=== PATIENT | female | born 1960 ===

== ENCOUNTER 2020-06-11 07:56 | Inpatient (IN) | payer OTHER ==
[~2020-06-11] VITALS: Ht 152.4 cm; Wt 90.7 kg
[2020-06-13] MEDS ORDERED: LIPITOR20 MG PO (10:31)
[2020-06-13] MEDS ORDERED: HYZAAR 100-251 EACH PO (10:31)
[2020-06-13] MEDS ORDERED: CARAFATE1 GM PO (10:31)
[2020-06-13] MEDS ORDERED: ASPIR 8181 MG PO (10:31)
[2020-06-13] MEDS ORDERED: TOPROL XL50 M1 PO (10:31)
[2020-06-13] MEDS ORDERED: MYSOLINE50 MG PO (10:32)
[2020-06-13] MEDS ORDERED: GABAPENTIN300 M2 PO (10:32)
[2020-06-13] MEDS ORDERED: BENTYL10 MG/1 ML PO (10:33)
[2020-06-13] MEDS ORDERED: CLONAZEPAM1 M1 PO (10:33)
[2020-06-17] MEDS ORDERED: BAYER THERAPY325 MG PO (11:27)
[2020-06-17] MEDS ORDERED: ATORVASTATIN CA10 MG PO (11:28)
[2020-06-20] MEDS ORDERED: DUI500 PO (07:55)
[2020-06-20] MEDS ORDERED: PERCOCET 5-3251 EACH PO (07:55)
[2020-06-20] MEDS ORDERED: ELIQUIS2.5 MG PO (07:55)
== END 2020-06-20 21:43 | DRG 470 ==
LOC: LAB 07:56 → EDSTATUS 06-13 09:31 → O/R 06-17 06:45 → SURG 06-17 06:45 → SURH 06-17 09:15 → SURG 06-17 13:45
PROVIDERS: ADMIT Orthopaedic Surgery; ATTEND Orthopaedic Surgery
PROC: 0SRC0J9 Replacement of Right Knee Joint with Synthetic Substitute, Cemented, Open Approach (ICD-10-PCS; principal; 2020-06-17 09:15)
PROC: 30233N1 Transfusion of Nonautologous Red Blood Cells into Peripheral Vein, Percutaneous Approach (ICD-10-PCS; 2020-06-19)
DX: M17.11 Unilateral primary osteoarthritis, right knee (principal); D62 Acute posthemorrhagic anemia; F41.8 Other specified anxiety disorders; M81.8 Other osteoporosis without current pathological fracture; E66.01 Morbid (severe) obesity due to excess calories; M85.461 Solitary bone cyst, right tibia and fibula; I10 Essential (primary) hypertension; I49.8 Other specified cardiac arrhythmias

== ENCOUNTER 2023-03-15 06:15 | Day surgery (SDC) | payer OTHER ==
[~2023-03-15] VITALS: Ht 157.5 cm; Wt 93.9 kg
[~2023-03-15 06:15] MED LIST: ASPIR 8181 MG PO; ATORVASTATIN CA10 MG PO; BAYER THERAPY325 MG PO; BENTYL10 MG/1 ML PO; CARAFATE1 GM PO; CLONAZEPAM1 M1 PO; DUI500 PO; ELIQUIS2.5 MG PO; GABAPENTIN300 M2 PO; HYZAAR 100-251 EACH PO; LIPITOR20 MG PO; MYSOLINE50 MG PO; PERCOCET 5-3251 EACH PO; TOPROL XL50 M1 PO
[2023-03-15] MEDS ORDERED: ALEVE220 M1 PO (11:59)
[2023-03-15] MEDS ORDERED: CEFADROXIL500 MG PO (11:59)
[2023-03-15] MEDS ORDERED: PERCOCET 5-3251 EACH PO (11:59)
== END 2023-03-15 14:20 | disposition home or self-care (01) ==
LOC: CIR.AMB 06:15
PROVIDERS: ATTEND Orthopaedic Surgery
DX: S52.532A Colles' fracture of left radius, initial encounter for closed fracture (principal); Z20.822 Contact with and (suspected) exposure to COVID-19; I10 Essential (primary) hypertension; E78.5 Hyperlipidemia, unspecified
CPT/HCPCS: 25609; 20902; 25101; L8699